=== PATIENT | female | born 1960 | race Caucasian/White ===

== ENCOUNTER 2017-01-10 06:54 | Day surgery (SDC) | payer BC ==
[~2017-01-10 06:54] MED LIST: ACETAMINOPHEN 1,000 MG/100 ML BTL IV ONE; CEFAZOLIN 2 Gram 2 GM/50 ML BAG IVPB ONE; FAMOTIDINE 20MG TABLET PO ONE; MECLIZINE 25 MG TABLET PO ONE; METOCLOPRAMIDE 10 MG TABLET PO ONE
--- NOTE | 2017-01-10 07:23 | History and Physical Report ---
DATE: 01/10/2017. CHIEF COMPLAINT: This is a patient with a history of intractable headache. 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 Although initially this system appeared to be working quite well, over time the disuse of the system resulted in some battery depletion and dysfunction. During this period of time, she stopped using the system and felt that her headache pattern was improved and that the system needed to be removed. She is here for removal of the peripheral nerve stimulator's internal generator and all appropriate connections. PAST MEDICAL HISTORY: Hypertension, sleep apnea, headaches. PAST SURGICAL HISTORY: Tonsils, hysterectomy, stimulator implant. MEDICATIONS ON ADMISSION: To be provided. ALLERGIES: Codeine. FAMILY/PSYCHOSOCIAL HISTORY: Noncontributory. REVIEW OF SYSTEMS: The patient is appropriate and in no acute distress. The remainder of the systems review shows blood pressure problems, irregular heartbeat, peripheral edema, degenerative arthritis, depression. PHYSICAL EXAMINATION: General: Height 5 feet, 7 inches. Weight 120. Vital Signals: Unavailable. HEENT: Within normal limits. Lungs: Clear. Heart: Regular rate and rhythm. Abdomen: Nontender. Musculoskeletal. Primary pain is headaches across the posterior and lateral and anterior head and face. Incisions for the stimulator are temporal, auricular, thoracic, and posterior axillary. All of the incisions are intact. Neurologic: Cranial nerves are intact. IMPRESSION: 1. MIGRAINE HEADACHES, ICD-10 CODE G43.919. 2. SUPRAORBITAL AND TRIGEMINAL NEURALGIA, ICD-10 CODE G35.80 AND G44.847. 3. PERIPHERAL NERVE STIMULATOR FOR CONTROL OF TRIGEMINAL NERVES. PLAN: The patient is here for removal of the peripheral stimulators on an outpatient basis. The patient understands the potential risks, side effects, and complications. There will be a certain amount of shaving of the head to adjust for the incisions and appropriate removal. MANDA HERNÁNDEZ D.O. Date & Time JOB NUMBER: Mynor Cantrell
[2017-01-10] MEDS ORDERED: BUPIVACAINE 0.5% W/EPI MPF 30 ML VIAL IVP ONE (15:42)
[2017-01-10] MEDS ORDERED: CEFAZOLIN 1G VIAL IM ONE (15:42)
[2017-01-10] MEDS ORDERED: LIDOCAINE 1% W/EPI 1:200,000 MPF 30ML SQ ONE (15:42)
--- NOTE | 2017-01-10 15:53 | Operative Note - [place] ---
DATE OF SURGERY: 01/10/17 PREOPERATIVE DIAGNOSIS: 1. MIGRAINE HEADACHES, ICD-10 CODE = G43.919. 2. SUPRAORBITAL AND TRIGEMINAL NEURALGIA, ICD-10 CODE = G35.80 AND G44.847. 3. PERIPHERAL NERVE STIMULATOR FOR CONTROL OF TRIGEMINAL NERVE PAIN. OPERATION: 1. INCISION, SUBCUTANEOUS DISSECTION, AND REMOVAL OF PERIPHERAL NERVE STIMULATORS BILATERAL SUPRAORBITAL. 2. INCISION, SUBCUTANEOUS DISSECTION, AND REMOVAL OF INTERNALIZED EXTENSIONS FROM SUPRAORBITAL TO POSTERIOR AURICULAR. 3. INCISION, SUBCUTANEOUS DISSECTION, AND REMOVAL OF INTERNAL GENERATOR AND BIFURCATED EXTENSIONS AT RIGHT CHEST WALL. SURGEON: MANDA HERNÁNDEZ D.O. ANESTHESIA: LOCAL SEDATION. ANESTHESIA PROVIDER: PAOLA OMALLEY CRNA. INDICATION: This patient presents with a history of intractable migraine headaches from trigeminal neuralgia with a peripheral nerve stimulator in place. Two sets of leads, three sets of extensions, and internal generator are here for removal. PROCEDURE: Intravenous line, vital sign monitoring, IV sedation, prepped and draped in sterile technique. Patient position prone. The incision at the right temporal region was infiltrated, incision made, and subcutaneous dissection was conducted to the supraorbital lead and its anchor. The anchor was cut and the lead removed intact. At the right posterior auricular region, skin infiltrated, incision made, and subcutaneous dissection was conducted to remove first the right supraorbital extension and then the left supraorbital extension. At the upper thoracic spine approximating T2-3, skin infiltrated, incision made, and subcutaneous dissection was performed to remove the posterior auricular and occipital extensions. At the right lateral chest wall generator pouch, infiltrated, incision made, and subcutaneous dissection was conducted to the generator. The generator and its extensions through the thoracic region were all removed intact. Antibiotic irrigation. Bovie for hemostasis. The incisions were then closed with Vicryl for fascia and a nylon suture for skin. Appropriate dressings placed. She was transported to the Recovery Room stable showing no side-effects from the procedure or the sedation. DISCHARGE INSTRUCTIONS: 1. The sites remain clean and dry. No showering or bathing until she is seen in 5-7 days to remove the suture. 2. Standard medications resumed, including the antibiotic, Keflex, 500 mg for 14 days. 3. The patient will contact the clinic with any side-effects. She should monitor for side-effects, continue with her antibiotics, and take appropriate medications. Once seen in the office, suture removed, then she will be cleared for showering and increasing activities. All other instructions provided, numbers to contact, problems given. She was then discharged. cc: Dr. Colunga JOB NUMBER: [id number] MTDD
[2017-01-10] MEDS ORDERED: PROPOFOL 10 MG/ML VIAL IV ONE (16:31)
[2017-01-10] MEDS ORDERED: MIDAZOLAM HCL 2MG/2ML VIAL IV ONE (16:31)
[2017-01-10] MEDS ORDERED: LIDOCAINE 2% MDV (20MG/ML) 20ML VIAL IV ONE (16:31)
[2017-01-10] MEDS ORDERED: ONDANSETRON HCL IV 4 MG/2 ML VIAL IVP ONE (16:31)
[2017-01-10] MEDS ORDERED: FENTANYL PF 100MCG/2ML VIAL IV ONE (16:31)
[2017-01-10] MEDS ORDERED: DEXMEDETOMIDINE HCL 200 MCG/2 ML VIAL IV ONE (16:31)
[2017-01-10] MEDS ORDERED: SCOPOLAMINE 1 PATCH TDSY TD ONE (16:31)
== END 2017-01-10 12:55 | disposition home or self-care (01) ==
LOC: SUR 06:54
PROVIDERS: ATTEND Pain Medicine Interventional Pain Medicine
DX: T85.890A Other specified complication of nervous system prosthetic devices, implants and grafts, initial encounter (principal); G50.0 Trigeminal neuralgia; G43.919 Migraine, unspecified, intractable, without status migrainosus; I10 Essential (primary) hypertension; E78.00 Pure hypercholesterolemia, unspecified
CPT/HCPCS: 64585; 64595; 00300; J2405; J3010; J0690; J3490